=== PATIENT | male | born 1995 | race Caucasian/White ===

== ENCOUNTER 2021-03-14 15:29 | Emergency (ER) | payer OTHER ==
[2021-03-14 17:39] LABS: BASOPHIL 0.3 % (0-2); EOSINOPHIL 3.9 % (0-5); HCT 32.8 % (42.0-52.0); HGB 11.2 g/dl (13.2-18.0); MCH 29.7 pg (25.0-31.0); MCHC 34.1 g/dL (32.0-36.0); MONOCYTE 9.7 % (0-12); MPV 10.9 fL (6.0-9.5); NEUTROPHIL 61.8 % (41-80); NRBC 0; PLT 293 K/uL (150-400); RBC 3.77 M/uL (4.70-6.00); RDW 13.2 % (11.5-14.0); WBC 10.8 K/uL (4.0-10.5)
[2021-03-14 17:44] LABS: ALBUMIN 2.8 g/dL (3.4-5.0); BILIRUBIN - TOTAL 0.4 mg/dL (0.2-1.0); CREATININE 0.84 mg/dL (0.67-1.17); GLOBULIN (CALCULATION) 4.1 g/dL; POTASSIUM 3.8 mmol/L (3.5-5.1); TOTAL PROTEIN 6.9 g/dL (6.4-8.2)
[2021-03-14] MEDS ORDERED: VIBRAMYCIN100 MG PO (20:01)
== END 2021-03-14 20:30 | disposition home or self-care (01) ==
LOC: FER 15:29
PROVIDERS: Nurse Practitioner Family
DX: L02.31 Cutaneous abscess of buttock (principal)
CPT/HCPCS: 36415; 80053; 83605; 85025; 87040; 87070; 87077; 87186; 87205; J3370; J7030; J7040; Q9967